=== PATIENT | male | born 1965 | race Hispanic/Latino ===

== ENCOUNTER 2018-02-17 16:34 | Emergency (ER) | payer OTHER ==
[2018-02-17] MEDS ORDERED: NA CHLORIDE 0.9% 2,000 ML ONE (17:27)
[2018-02-17 17:32] LABS: Absolute Lymphocytes (CBC) 0.6 K/uL (0.7-4.9); Absolute Monocytes 0.7 K/uL (0.1-1.3); Absolute Neutrophil 8.7 K/uL (1.8-8.0); Basophils % 0.2 % (0-1.3); Eosinophils % 0.1 % (0-4.4); Hematocrit 48.1 % (39.6-49.0); Lymphocytes % 5.6 % (15.3-44.8); MCV 86.8 fL (80-100); MPV 8.2 fL (7.6-11.3); Monocytes % 6.7 % (3.3-12.3); RBC Red Blood Cell Count 5.54 M/uL (4.33-5.43)
[2018-02-17 17:44] LABS: Potassium 3.6 mEq/L (3.6-5.0)
--- NOTE | 2018-02-17 17:44 | RAD REPORT ---
EXAM DESCRIPTION: RAD - Chest Single View - 02/17/2018 5:28 pm CLINICAL HISTORY: Fever COMPARISON: None. FINDINGS: Portable technique limits examination quality. The lungs are grossly clear. The heart is normal in size. No displaced fractures. IMPRESSION: No acute intrathoracic process suspected.
[2018-02-17] MEDS ORDERED: ACETAMINOPHEN 500 MG TAB ONE (17:45)
[2018-02-17 17:50] LABS: Albumin 4.2 g/dL (3.2-5.5); Bilirubin Direct 0.2 mg/dL (0-0.2); Bilirubin Total 1.5 mg/dL (0.3-1.2); Protein, Total 7.5 g/dL (6.0-8.3)
[2018-02-17 17:54] LABS: CKMB Creatine Kinase MB 0.5 ng/ml (0.3-4.0)
[2018-02-17 18:43] LABS: Urine Blood 2+ (NEG); Urine Glucose NEGATIVE (NEG); Urine Protein 2+ (NEG); Urine Specific Gravity >1.030 (1.005-1.030); Urine pH 5.5 (5.0-7.0)
[2018-02-17 18:59] LABS: Urine Amorphous Sediment 4+ /HPF (NONE SEEN); Urine Bacteria <20 /HPF (NONE SEEN); Urine Culture Reflex Order NOT NEEDED; Urine Mucus NS /HPF (NONE SEEN)
[2018-02-17 19:03] LABS: Blood Morphology Comment NOT SEEN (NOT SEEN); Platelet Estimate ADEQ; Urine White Blood Cell Casts OK
--- NOTE | 2018-02-17 19:19 | RAD REPORT ---
EXAM DESCRIPTION: CTAbdomen Pelvis W Contrast - 02/17/2018 7:03 pm CLINICAL HISTORY: Abdominal pain. COMPARISON: None. TECHNIQUE: Biphasic CT imaging of the abdomen and pelvis was performed with 100 ml non-ionic IV cont rast. All CT scans are performed using dose optimization technique as appropriate and may include automated exposure control or mA/KV adjustment according to patient size. FINDINGS: The lung bases are clear. The liver demonstrates diffuse fatty infiltration. The spleen, pancreas, adrenal glands and kidneys a re within normal limits. No bowel obstruction, free air, free fluid or abscess. Mild inflammation involves the descending colo n compatible with mild colitis. No pneumatosis coli seen. The appendix is normal. No evidence of sig nificant lymphadenopathy. No suspicious bony findings. IMPRESSION: Mild colitis is seen involving the descending colon. Fatty liver.
[2018-02-17] MEDS ORDERED: CIPROFLOXACIN 400mg IV 400 MG/200 ML BAG IV ONE (19:58)
[2018-02-17] MEDS ORDERED: NA CHLORIDE 0.9% 1,000 ML ONE (19:58)
[2018-02-17] MEDS ORDERED: METRONIDAZOLE 500mg IVPB 500 MG/100 ML BAG IV ONE (19:58)
--- NOTE | 2018-02-17 20:57 | ER ---
Nurse's Notes [facility] Name: Ha Morelos Age: 52 yrs Sex: Male : 1965 Arrival Date: 02/17/2018 Time: 16:35 Bed 5 Private MD: Hannah Rivero K Diagnosis: Dehydration;Left sided colitis;Diarrhea, unspecified Presentation: 02/17 16:59 Presenting complaint: Patient states: Diarrhea, body aches, and fever x 2 days. TMAX hb 104. Transition of care: patient was not received from another setting of care. Onset of symptoms was February 16, 2018. Care prior to arrival: None. 16:59 Method Of Arrival: Ambulatory hb 16:59 Acuity: JOVAN 2 hb Historical: - Allergies: 17:00 No Known Allergies; hb - PMHx: 17:00 High Cholesterol; hb - Immunization history:: Adult Immunizations up to date. - Social history:: Smoking status: Patient/guardian denies using tobacco. Screenin:15 Abuse screen: Denies threats or abuse. Nutritional screening: No deficits noted. la1 Tuberculosis screening: No symptoms or risk factors identified. Fall Risk None identified. Assessment: 17:16 General: Appears ill, Behavior is calm, cooperative. Pain: Denies pain. Neuro: Level of la1 Consciousness is awake, alert, obeys commands, Oriented to person, place, time, situation. Cardiovascular: Capillary refill < 3 seconds Patient's skin is warm and dry. Respiratory: Airway is patent Respiratory effort is even, unlabored, Respiratory pattern is regular, symmetrical, Breath sounds are clear bilaterally. GI: Abdomen is round non-distended, Bowel sounds present X 4 quads. Abd is soft and non tender X 4 quads. Reports diarrhea. : No signs and/or symptoms were reported regarding the genitourinary system. 18:06 Reassessment: Patient appears in no apparent distress at this time. No changes from la1 previously documented assessment. Patient and/or family updated on plan of care and expected duration. Pain level reassessed. Patient is alert, oriented x 3, equal unlabored respirations, skin warm/dry/pink. 21:18 General: Appears comfortable, Behavior is calm, cooperative, appropriate for age. Pain: fc Complains of pain in abdomen Quality of pain is described as crampy, Is intermittent. Neuro: Level of Consciousness is awake, alert, obeys commands, Oriented to person, place, time, situation. Cardiovascular: Denies chest pain, Heart tones S1 S2 Capillary refill < 3 seconds Pulses are all present. Rhythm is sinus rhythm. Respiratory: Airway is patent Respiratory effort is even, unlabored, Respiratory pattern is regular, symmetrical, Breath sounds are clear bilaterally. GI: Abdomen is non-distended, Bowel sounds hyperactive in abdomen diffusely Abd is soft and non tender X 4 quads. Reports diarrhea. : No deficits noted. EENT: No deficits noted. Derm: Skin is pink, warm \T\ dry. Musculoskeletal: Circulation, motion, and sensation intact. Capillary refill < 3 seconds, Range of motion: intact in all extremities. Vital Signs: 16:58 BP 138 / 56; Pulse 154; Resp 16; Temp 103.1(O); Pulse Ox 100% on R/A; Weight 81.19 kg; hb Height 5 ft. 4 in. (162.56 cm); Pain 6/10; 18:06 BP 139 / 84; Pulse 135; Resp 19; Pulse Ox 100% on R/A; la1 18:08 Temp 100.4(O); la1 18:44 BP 128 / 78; Pulse 121; Resp 19; Pulse Ox 100% on R/A; la1 19:16 BP 117 / 77; Pulse 116; Resp 19; Pulse Ox 100% on R/A; la1 21:14 BP 128 / 88; Pulse 99; Resp 18; Temp 99.2; Pulse Ox 100% on R/A; Pain 2/10; fc 16:58 Body Mass Index 30.72 (81.19 kg, 162.56 cm) hb ED Course: 16:35 Patient arrived in ED. as 16:36 Hannah Rivero MD is Private Physician. as 16:58 Arm band placed on left wrist. hb 17:00 Triage completed. hb 17:04 Justin Martin RN is Primary Nurse. la1 17:07 Yumiko Lott F[facility]-C [facility]. snw 17:07 Ignacio Ivey MD is Attending Physician. snw 17:15 Call light in reach. Side rails up X 1. night monitor on. Pulse ox on. NIBP on. la1 17:15 No provider procedures requiring assistance completed. Inserted saline lock: 18 gauge la1 in right antecubital area, using aseptic technique. Blood collected. 17:28 Chest Single View XRAY In Process Unspecified. EDMS 19:03 CT Abd/Pelvis - W/Contrast In Process Unspecified. EDMS 20:57 Hannah Rivero MD is Referral Physician. snw 21:16 IV discontinued, intact, bleeding controlled, No redness/swelling at site. Pressure fc dressing applied. Administered Medications: 17:15 Drug: NS 0.9% (30 ml/kg) 30 ml/kg Route: IV; Rate: bolus; Site: left antecubital; la1 21:17 Follow up: IV Status: Completed infusion fc 21:18 Follow up: Response: No adverse reaction fc 17:31 Drug: Tylenol 1000 mg Route: PO; la1 19:21 Follow up: Response: No adverse reaction; Temperature is decreased la1 19:44 Drug: Cipro 400 mg Volume: 200 ml; Route: IVPB; Infused Over: 60 mins; Site: right la1 antecubital; 21:17 Follow up: IV Status: Completed infusion; IV Intake: 200ml fc 19:44 Drug: Flagyl 500 mg Volume: 100 ml; Route: IVPB; Rate: 200 ml/hr; Infused Over: 30 la1 mins; Site: right antecubital; 21:17 Follow up: Response: No adverse reaction; IV Status: Completed infusion; IV Intake: fc 100ml Intake: 21:17 IV: 100ml; Total: 100ml. fc 21:17 IV: 200ml; Total: 300ml. fc Outcome: 20:57 Discharge ordered by . snw 21:16 Discharged to home ambulatory, with family. fc 21:16 Condition: good 21:16 Discharge instructions given to patient, family, Instructed on discharge instructions, follow up and referral plans. medication usage, increased fluids and bland diet Demonstrated understanding of instructions, follow-up care, medications, increased fluids and bland diets Prescriptions given X 4. 21:20 Patient left the ED. fc Signatures: Dispatcher [employer] EDMS Yumiko Lott, DOUGLAS-C [employer] IN[employer]ORY CONTROL CLERK-Csnw Sharonda Womack RN RN Shameka Ford Lee, RN RN la1 Marcia Garcia RN RN
--- NOTE | 2018-02-17 20:57 | EDPHYS ---
Physician Documentation [facility] Name: Ha Morelos Age: 52 yrs Sex: Male : 1965 Arrival Date: 02/17/2018 Time: 16:35 Bed 5 Private MD: Hannah Rivero K ED Physician Ignacio Ivey HPI: 02/17 18:33 This 52 yrs old Male presents to ER via Ambulatory with complaints of Nausea, snw Diarrhea. 18:33 The patient presents to the emergency department with diarrhea, x 2 days. Onset: The snw symptoms/episode began/occurred suddenly. Possible causes: unknown. The symptoms are aggravated by nothing. Associated signs and symptoms: Pertinent positives: fever. Severity of symptoms: At their worst the symptoms were moderate severe. The patient has not experienced similar symptoms in the past. It is unknown whether or not the patient has recently seen a physician. Historical: - Allergies: 17:00 No Known Allergies; hb - PMHx: 17:00 High Cholesterol; hb - Immunization history:: Adult Immunizations up to date. - Social history:: Smoking status: Patient/guardian denies using tobacco. ROS: 18:32 Eyes: Negative for injury, pain, redness, and discharge, ENT: Negative for injury, snw pain, and discharge, Neck: Negative for injury, pain, and swelling, Cardiovascular: Negative for chest pain, palpitations, and edema, Respiratory: Negative for shortness of breath, cough, wheezing, and pleuritic chest pain. 18:32 Back: Negative for injury and pain, : Negative for injury, bleeding, discharge, and swelling, MS/Extremity: Negative for injury and deformity, Skin: Negative for injury, rash, and discoloration, Neuro: Negative for headache, weakness, numbness, tingling, and seizure. 18:32 Constitutional: Positive for chills, fever, poor PO intake. 18:32 Abdomen/GI: Positive for diarrhea. Exam: 18:29 Head/Face: Normocephalic, atraumatic. Eyes: Pupils equal round and reactive to light, snw extra-ocular motions intact. Lids and lashes normal. Conjunctiva and sclera are non-icteric and not injected. Cornea within normal limits. Periorbital areas with no swelling, redness, or edema. ENT: Nares patent. No nasal discharge, no septal abnormalities noted. Tympanic membranes are normal and external auditory canals are clear. Oropharynx with no redness, swelling, or masses, exudates, or evidence of obstruction, uvula midline. Mucous membranes moist. Neck: Trachea midline, no thyromegaly or masses palpated, and no cervical lymphadenopathy. Supple, full range of motion without nuchal rigidity, or vertebral point tenderness. No Meningismus. Chest/axilla: Normal chest wall appearance and motion. Nontender with no deformity. No lesions are appreciated. 18:29 Respiratory: Lungs have equal breath sounds bilaterally, clear to auscultation and percussion. No rales, rhonchi or wheezes noted. No increased work of breathing, no retractions or nasal flaring. Back: No spinal tenderness. No costovertebral tenderness. Full range of motion. Skin: Warm, dry with normal turgor. Normal color with no rashes, no lesions, and no evidence of cellulitis. MS/ Extremity: Pulses equal, no cyanosis. Neurovascular intact. Full, normal range of motion. Neuro: Awake and alert, GCS 15, oriented to person, place, time, and situation. Cranial nerves II-XII grossly intact. Motor strength 5/5 in all extremities. Sensory grossly intact. Cerebellar exam normal. Normal gait. 18:29 Constitutional: The patient appears alert, awake, febrile. 18:29 Cardiovascular: Rate: tachycardic. 18:29 Abdomen/GI: Inspection: abdomen appears normal, Bowel sounds: normal, Palpation: moderate abdominal tenderness, in the right upper quadrant, left upper quadrant and right lower quadrant. Vital Signs: 16:58 BP 138 / 56; Pulse 154; Resp 16; Temp 103.1(O); Pulse Ox 100% on R/A; Weight 81.19 kg; hb Height 5 ft. 4 in. (162.56 cm); Pain 6/10; 18:06 BP 139 / 84; Pulse 135; Resp 19; Pulse Ox 100% on R/A; la1 18:08 Temp 100.4(O); la1 18:44 BP 128 / 78; Pulse 121; Resp 19; Pulse Ox 100% on R/A; la1 19:16 BP 117 / 77; Pulse 116; Resp 19; Pulse Ox 100% on R/A; la1 21:14 BP 128 / 88; Pulse 99; Resp 18; Temp 99.2; Pulse Ox 100% on R/A; Pain 2/10; fc 16:58 Body Mass Index 30.72 (81.19 kg, 162.56 cm) hb MDM: 17:14 Patient medically screened. snw 20:27 Data reviewed: vital signs, nurses notes. Data interpreted: Pulse oximetry: on room air snw is 100 %. Interpretation: normal. Counseling: I had a detailed discussion with the patient and/or guardian regarding: the historical points, exam findings, and any diagnostic results supporting the discharge/admit diagnosis, lab results, radiology results, the need for outpatient follow up, to return to the emergency department if symptoms worsen or persist or if there are any questions or concerns that arise at home. Response to treatment: the patient's symptoms have markedly improved after treatment. Special discussion: Based on the patient's Hx, exam, and Dx evaluation, there is no indication for emergent surgery or inpatient Tx. It is understood by the patient/guardian that if the Sx's persist or worsen they need to return immediately for re-evaluation. Based on the history and exam findings, there is no indication for further emergent testing or inpatient evaluation. I discussed with the patient/guardian the need to see the insurance case manager for further evaluation of the symptoms. I discussed with the patient/guardian the need to see the primary care provider for further evaluation of the symptoms. 02/17 17:09 Order name: Urine Microscopic Only; Complete Time: 19:02 snw 02/17 17:09 Order name: Urine Culture snw 02/17 17:09 Order name: Lipase; Complete Time: 17:56 snw 02/17 17:09 Order name: Procalcitonin; Complete Time: 18:15 snw 02/17 17:09 Order name: Basic Metabolic Panel; Complete Time: 17:56 snw 02/17 17:09 Order name: Blood Culture Adult (2) snw 02/17 17:09 Order name: CBC with Diff; Complete Time: 19:04 snw 02/17 17:09 Order name: Ckmb; Complete Time: 17:56 snw 02/17 17:09 Order name: CPK; Complete Time: 17:56 snw 02/17 17:09 Order name: Lactate; Complete Time: 17:50 snw 02/17 17:09 Order name: LFT's; Complete Time: 17:56 snw 02/17 17:09 Order name: Flu; Complete Time: 17:50 snw 02/17 17:57 Order name: Urine Dipstick--Ancillary (enter results); Complete Time: 19:02 bd 02/17 19:03 Order name: CBC Smear Scan; Complete Time: 19:04 EDMS 02/17 17:09 Order name: Urine Dipstick-Ancillary (obtain specimen); Complete Time: 18:07 snw 02/17 17:09 Order name: Chest Single View XRAY; Complete Time: 17:50 snw 02/17 17:09 Order name: Accucheck; Complete Time: 17:16 snw 02/17 17:09 Order name: Cardiac monitoring; Complete Time: 17:16 snw 02/17 17:09 Order name: EKG - Nurse/Tech; Complete Time: 17:16 snw 02/17 17:09 Order name: IV Saline Lock - Large Bore; Complete Time: 17:16 snw 02/17 17:09 Order name: Labs collected and sent; Complete Time: 17:16 snw 02/17 17:09 Order name: O2 Per Protocol; Complete Time: 17:16 snw 02/17 17:09 Order name: O2 Sat Monitoring; Complete Time: 17:16 snw 02/17 17:58 Order name: CT Abd/Pelvis - W/Contrast; Complete Time: 19:31 snw Administered Medications: 17:15 Drug: NS 0.9% (30 ml/kg) 30 ml/kg Route: IV; Rate: bolus; Site: left antecubital; la1 21:17 Follow up: IV Status: Completed infusion fc 21:18 Follow up: Response: No adverse reaction fc 17:31 Drug: Tylenol 1000 mg Route: PO; la1 19:21 Follow up: Response: No adverse reaction; Temperature is decreased la1 19:44 Drug: Cipro 400 mg Volume: 200 ml; Route: IVPB; Infused Over: 60 mins; Site: right la1 antecubital; 21:17 Follow up: IV Status: Completed infusion; IV Intake: 200ml fc 19:44 Drug: Flagyl 500 mg Volume: 100 ml; Route: IVPB; Rate: 200 ml/hr; Infused Over: 30 la1 mins; Site: right antecubital; 21:17 Follow up: Response: No adverse reaction; IV Status: Completed infusion; IV Intake: fc 100ml Disposition: 02/18 07:09 Co-signature as Attending Physician, Ignacio Ivey MD. rn Disposition: 02/17/18 20:57 Discharged to Home. Impression: Dehydration, Left sided colitis, Diarrhea, unspecified. - Condition is Stable. - Discharge Instructions: Food Choices to Help Relieve Diarrhea, Adult, Dehydration, Adult, Diarrhea, Rehydration, Adult. - Prescriptions for Bentyl 20 mg Oral Tablet - take 1 tablet by ORAL route every 6 hours As needed; 20 tablet. Flagyl 500 mg Oral Tablet - take 1 tablet by ORAL route every 8 hours for 10 days; 30 tablet. Zofran 4 mg Oral Tablet - take 1 tablet by ORAL route every 12 hours As needed; 6 tablet. Cipro 500 mg Oral Tablet - take 1 tablet by ORAL route every 12 hours for 7 days; 14 tablet. - Work release form, Medication Reconciliation Form, Thank You Letter, Antibiotic Education, Prescription Opioid Use form. - Follow up: Hannah Rivero; When: 2 - 3 days; Reason: Recheck today's complaints, Continuance of care, Re-evaluation by your physician. Follow up: Emergency Department; When: As needed; Reason: Worsening of condition. Signatures: Dispatcher [employer] EDYumiko Moncada, SANDRAC DINING ROOM BUSSER-Csnw Sharonda Womack RN RN fc Nieto, Roman, MD MD rn Attema, Lee, RN RN la1 Marcia Garcia RN RN
--- NOTE | 2018-02-18 10:22 | EKG ---
Test Date: 2018-02-17 Test Time: 17:08:23 Location Worker: [facility] RESULTS: Intervals: Rate: 156 OR: 124 QRSD: 82 QT: 254 QTc: 409 Cornelius: P: 0 OR: 124 QRS: 34 T: 2 INTERPRETIVE STATEMENTS: Sinus tachycardia Abnormal ECG Compared to ECG 02/27/2002 22:07:00 Sinus rhythm no longer present Electronically Signed On 02-18-18 10:22:27 CDT by Jose Roberto Bella
== END 2018-02-17 21:20 | disposition home or self-care (01) ==
LOC: ER 16:34
DX: E86.0 Dehydration (principal); K51.50 Left sided colitis without complications
CPT/HCPCS: 36415; 71045; 74177; 80048; 80076; 81003; 81015; 82550; 82553; 83605; 83690; 84145; 85025; 87040; 87086; 87088; 87804; 93005; 99284; J0744; J7030; Q9967